=== PATIENT | female | born 2000 ===

== ENCOUNTER → 2022-06-11 09:54 | Outpatient (CLI) | payer OTHER, MEDICAID, SELFPAY ==
[2022-06-11 20:10] LABS: D Dimer 419 ng/mL (<230)
[2022-06-11 20:22] LABS: Add Manual Diff / Slide Review NO; Basophils Absolute Auto 0 /uL (0-100); Basophils Percent Auto 0.5 % (0-2); Eosinophils Absolute Auto 100 /uL (0-450); Eosinophils Percent Auto 2.5 % (2-4); Hemoglobin 13.9 g/dL (12.0-16.0); Lymphocytes Absolute Auto 2000 /uL (1100-4500); Lymphocytes Percent Auto 51.7 % (25-40); Mean Corpuscular HGB Conc 34.7 % (30-36); Mean Corpuscular Hemoglobin 32.1 PG (26-34); Mean Corpuscular Volume 92.5 fL (80-100); Monocytes Absolute Auto 400 /uL (0-900); Monocytes Percent Auto 10.1 % (3-14); Neutrophils Absolute Auto 1300 /uL (1500-7000); Neutrophils Percent Auto 35.2 % (50-75); Platelet Count 301 X10^3/uL (150-400); Red Blood Cell Count 4.32 X10^6/uL (4.0-5.2); Red Cell Distribution Width 12.9 % (11.6-14.8); White Blood Cell Count 3.8 X10^3/uL (4.5-11.0)
[2022-06-11 20:32] LABS: Troponin I < 0.012 ng/mL (0.01-0.034)
== END ==
PROVIDERS: PCP Family Medicine; Visit Provider Family Medicine
DX: D68.51 Activated protein C resistance (principal); R07.89 Other chest pain; Z86.718 Personal history of other venous thrombosis and embolism
CPT/HCPCS: 84484; 85025; 85379

== ENCOUNTER 2022-06-14 14:21 | Emergency (ER) | payer OTHER, MEDICAID, SELFPAY ==
[2022-06-14 14:57] VITALS: BP 130/81; PULSE 80; RESP 18; TEMP 36.9; O2SAT 99; BMI 22.8
--- NOTE | 2022-06-14 15:06 | DI.RAD.S_ITS ---
PROCEDURE: XR CHEST 1V INDICATIONS: chest pain TECHNIQUE: One view of the chest was acquired. COMPARISON: [facility] ([place]), CR, XR CHEST 2V, 06/08/2022, 14:28. FINDINGS: Surgical changes and devices: None. Lungs and pleura: Lungs are clear. No pleural effusions or pneumothorax. Mediastinum: Mediastinal contours appear normal. Heart size is normal. Bones and chest wall: No suspicious bony lesions. Overlying soft tissues appear unremarkable. IMPRESSION: Portable chest within normal limits. Dictated by: José Antonio Ybarra M.D. on 06/14/2022 at 15:22 Approved by: José Antonio Ybarra M.D. on 06/14/2022 at 15:23
--- NOTE | 2022-06-14 15:10 | DI.CT.S_ITS ---
PROCEDURE: CT ANGIO CHEST PE PROTOCOL INDICATIONS: Short of breath, chest pain, dvt TECHNIQUE: After the administration of intravenous contrast, 2 mm thick sections acquired from the pulmonary apices to the posterior costophrenic angles. 3-dimensional maximum intensity projection (MIP) coronal and sagittal reformats were then acquired through the thorax. For radiation dose reduction, the following was used: automated exposure control, adjustment of mA and/or kV according to patient size. COMPARISON: [facility], CR, XR CHEST 1V, 06/14/2022, 15:10. FINDINGS: Image quality: Excellent. Pulmonary arteries: Pulmonary arteries are normal in size, and demonstrate no intraluminal filling defects to suggest central pulmonary embolism. Lungs and pleura: Lungs are clear. No pleural effusions or pneumothorax. Central and peripheral airways are patent. Mediastinum: Heart size is normal, without pericardial effusion. No mediastinal or hilar adenopathy. Thoracic aorta is normal in caliber and enhancement. Esophagus is normal in caliber, without hiatal hernia. Bones and chest wall: No suspicious bony lesions. Ribs and thoracic spine appear intact throughout. Thyroid gland demonstrates no significant abnormality. No axillary or supraclavicular adenopathy. Abdomen: Visualized upper abdominal solid organs appear normal in the early arterial phase of enhancement. IMPRESSION: Negative for pulmonary embolism. Clear lungs. Dictated by: José Antonio Ybarra M.D. on 06/14/2022 at 16:20 Approved by: José Antonio Ybarra M.D. on 06/14/2022 at 16:22
[2022-06-14 15:35] LABS: Alanine Aminotransferase 15 IU/L (<35); Albumin 4.8 g/dL (3.5-5.0); Albumin Globulin Ratio 1.5 (1.0-2.8); Alkaline Phosphatase 38 U/L (38-126); Aspartate Aminotransferase 21 IU/L (14-36); BUN Creatinine Ratio 17.5 (6-22); Bilirubin Total 1.7 mg/dL (0.2-1.3); Blood Urea Nitrogen 14 mg/dL (7-17); Calcium 9.6 mg/dL (8.4-10.2); Carbon Dioxide 26 mmol/L (22-32); Chloride 107 mmol/L (98-107); Creatine Kinase 79 U/L (30-135); Estimated Glomerular Filt Rate > 60 mL/min (>60); Globulin 3.2 g/dL (1.7-4.1); Glucose 87 mg/dL (70-100); HEMOLYSIS < 15 (0-50); Lipase 114 U/L (23-300); Potassium 4.1 mmol/L (3.4-5.1); Sodium 139 mmol/L (137-145)
[2022-06-14 15:47] LABS: NT-proBNP (BNP-Adult 18+) 60 pg/mL (<125); Troponin I < 0.012 ng/mL (0.01-0.034)
[2022-06-14 15:57] LABS: Add Manual Diff / Slide Review NO; Basophils Absolute Auto 100 /uL (0-100); Eosinophils Absolute Auto 0 /uL (0-450); Eosinophils Percent Auto 0.7 % (2-4); Hematocrit 41.1 % (36-46); Hemoglobin 14.3 g/dL (12.0-16.0); Lymphocytes Absolute Auto 1500 /uL (1100-4500); Lymphocytes Percent Auto 24.7 % (25-40); Mean Corpuscular HGB Conc 34.8 % (30-36); Mean Corpuscular Hemoglobin 32.2 PG (26-34); Mean Corpuscular Volume 92.5 fL (80-100); Monocytes Absolute Auto 400 /uL (0-900); Monocytes Percent Auto 5.9 % (3-14); Neutrophils Absolute Auto 4000 /uL (1500-7000); Neutrophils Percent Auto 67.7 % (50-75); Platelet Count 343 X10^3/uL (150-400); Red Blood Cell Count 4.44 X10^6/uL (4.0-5.2); Red Cell Distribution Width 13.3 % (11.6-14.8); White Blood Cell Count 5.9 X10^3/uL (4.5-11.0)
[2022-06-14 16:23] LABS: COVID19 -Nasal RAPID Negative (Negative)
[2022-06-14 18:46] VITALS: BP 129/79; PULSE 70; RESP 16; O2SAT 96
--- NOTE | 2022-06-14 19:03 | ED.SOB ---
HPI - SOB/Dyspnea General Chief Complaint: Shortness of Breath/Dyspnea Stated Complaint: Ref for urgent ct scan Time Seen by Provider: 06/14/22 17:42 Source: patient Mode of arrival: Ambulatory Limitations: no limitations History of Present Illness HPI Narrative: This is a 22-year-old female with history of factor 5 Leiden and chronic DVT in your right lower extremity who comes to the emergency department. Patient presents with complaint of chest pain that has been intermittent for the past several weeks. 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 She states she is had a lot of musculoskeletal issue her joints her shoulders her pectoral muscles and it was not atypical for her to have chest pain. She notes she was at home she had sort of left upper sternal border chest discomfort, she felt short of breath she is had this on off she is not had any syncope or passing out. No fevers or chills, no cold cough or congestion. No productive sputum. No palpitations. She denies nausea or vomiting, no diarrhea constipation, no urinary symptoms. No new swelling in her extremities she states her right calf is sort of chronically swollen patient states that she is had increased anxiety since finishing college and no longer being in his a structured environment. She thought that she would be more excited to be done states she has felt more anxious. She does have IUD in place, a Liletta. She is not on any other estrogen products she was found to have factor 5 Leiden she believes she had a DVT probably a couple years before, she was on oral contraceptives at that time had pretty significant calf pain but thought it was musculoskeletal. It was later found couple years after this episode. Patient is not currently anticoagulated. She did have COVID about 2 months ago she states she had quite a bit of breathing difficulties at that but she had a period where she was pretty much asymptomatic afterwards. She is not had any prior surgeries. No tobacco, alcohol or illicit. She states for family history no known cardiac history, no other pulmonary history, she would an aunt who had a stroke at age 40. She is currently living on [address]. She does have a primary care provider on the [place]. Related Data Home Medications Medication Instructions Recorded Confirmed Iron supplement daily PO 06/08/22 06/08/22 Vitamin C daily PO 06/08/22 diclofenac sodium 1 % topical gel 4 g topical QID 06/12/22 06/12/22 piroxicam 20 mg capsule 20 mg PO DAILY 06/12/22 06/12/22 Allergies Allergy/AdvReac Type Severity Reaction Status Date / Time No Known Drug Allergies Allergy Unverified 06/08/22 14:37 Review of Systems Review of Systems ROS Unobtainable: All systems reviewed & are unremarkable except as noted in HPI and below Patient History Medical History History of migraine Social History Smoking Status: Never smoker Smoking Status: Never smoker alcohol intake frequency: 0-2 drinks per day Substance Use Type: does not use Exam Narrative Exam Narrative: GENERAL: Alert and oriented x three, well-nourished female in mild distress. HEENT: Head normocephalic, atraumatic, EOMI, pupils reactive, face symmetric, moist mucous membranes NECK: Supple, full range of motion CARDIOVASCULAR: Regular rate and rhythm without murmurs, rubs or gallops. No JVD no swelling bilateral extremities appreciated. Patient has some mild tenderness at the sternal border and left clavicle sternal joint but no erythema, swelling or skin changes. RESPIRATORY: Breath sounds equal bilaterally, no wheezes rales or rhonchi. ABDOMEN: Soft, nontender. Normoactive bowel sounds all 4 quadrants. No guarding or rebound, rigidity, no mass : No CVA tenderness EXTREMITIES: Normal range of motion, no clubbing or edema. Neurovascularly intact NEUROLOGICAL: Cranial nerves II through XII grossly intact. Moving all extremities SKIN: Warm, dry, no petechiae, no rashes or lesions. Initial Vital Signs Initial Vital Signs: Vital Signs Temperature 98.5 F 06/14/22 14:57 Pulse Rate 80 06/14/22 14:57 Respiratory Rate 18 06/14/22 14:57 Blood Pressure 130/81 06/14/22 14:57 Pulse Oximetry 99 06/14/22 14:57 Oxygen Delivery Method 06/14/22 14:57 Course Orders Ordered: ED Orders 06/14/22 15:06 XR chest 1V Stat EKG-12 Lead Stat 06/14/22 15:10 CT angio chest PE protocol Stat Complete Blood Count AUTO DIFF Stat Comprehensive Metabolic Panel Stat Lipase Stat Magnesium Stat NT-proBNP (BNP-Adult 18+) Stat Troponin & CK Cardiac Panel Stat 06/14/22 16:01 COVID19 -Nasal RAPID/Pre-Proc Stat Vital Signs Vital signs: Vital Signs - 8 hr 06/14/22 14:57 06/14/22 18:46 Temperature 98.5 F Pulse Rate 80 70 Respiratory Rate 18 16 Blood Pressure 130/81 129/79 Pulse Oximetry 99 96 Oxygen Delivery Method Room Air MDM - SOB/Dyspnea Lab Data Result diagrams: 06/14/22 15:10 06/14/22 15:10 Labs: Lab Results 06/14/22 06/14/22 06/14/22 Range/Units 15:10 15:10 15:10 WBC 5.9 (4.5-11.0) X10^3/uL RBC 4.44 (4.0-5.2) X10^6/uL Hgb 14.3 (12.0-16.0) g/dL Hct 41.1 (36-46) % MCV 92.5 (80-100) fL MCH 32.2 (26-34) PG MCHC 34.8 (30-36) % RDW 13.3 (11.6-14.8) % Plt Count 343 (150-400) X10^3/uL Neut % (Auto) 67.7 (50-75) % Lymph % (Auto) 24.7 L (25-40) % [place] % (Auto) 5.9 (3-14) % Eos % (Auto) 0.7 L (2-4) % Baso % (Auto) 1.0 (0-2) % Neut # (Auto) 4000 (4364-7680) /uL Lymph # (Auto) 1500 (5011-6955) /uL [place] # (Auto) 400 (0-900) /uL Eos # (Auto) 0 (0-450) /uL Baso # (Auto) 100 (0-100) /uL Sodium 139 Cancelled (137-145) mmol/L Potassium 4.1 Cancelled (3.4-5.1) mmol/L Chloride 107 Cancelled (98-107) mmol/L Carbon Dioxide 26 Cancelled (22-32) mmol/L BUN 14 Cancelled (7-17) mg/dL Creatinine 0.80 Cancelled (0.52-1.04) mg/dL Estimated GFR > 60 Cancelled (>60) mL/min BUN/Creatinine Ratio 17.5 Cancelled (6-22) Glucose 87 Cancelled (70-100) mg/dL Calcium 9.6 Cancelled (8.4-10.2) mg/dL Magnesium 2.0 (1.6-2.3) mg/dL Total Bilirubin 1.7 H Cancelled (0.2-1.3) mg/dL AST 21 Cancelled (14-36) IU/L ALT 15 Cancelled (<35) IU/L Alkaline Phosphatase 38 Cancelled (38-126) U/L Total Creatine Kinase 79 (30-135) U/L CK-MB (CK-2) TNP CK-MB (CK-2) Rel Index TNP Troponin I < 0.012 (0.01-0.034) ng/mL NT-Pro-B Natriuret Pep 60 Cancelled (<125) pg/mL Total Protein 8.0 Cancelled (6.3-8.2) g/dL Albumin 4.8 Cancelled (3.5-5.0) g/dL Globulin 3.2 Cancelled (1.7-4.1) g/dL Albumin/Globulin Ratio 1.5 Cancelled (1.0-2.8) Lipase 114 (23-300) U/L SARS-CoV-2 (PCR) (Negative) 06/14/22 Range/Units 16:01 WBC (4.5-11.0) X10^3/uL RBC (4.0-5.2) X10^6/uL Hgb (12.0-16.0) g/dL Hct (36-46) % MCV (80-100) fL MCH (26-34) PG MCHC (30-36) % RDW (11.6-14.8) % Plt Count (150-400) X10^3/uL Neut % (Auto) (50-75) % Lymph % (Auto) (25-40) % [place] % (Auto) (3-14) % Eos % (Auto) (2-4) % Baso % (Auto) (0-2) % Neut # (Auto) (1388-5904) /uL Lymph # (Auto) (3583-0828) /uL [place] # (Auto) (0-900) /uL Eos # (Auto) (0-450) /uL Baso # (Auto) (0-100) /uL Sodium (137-145) mmol/L Potassium (3.4-5.1) mmol/L Chloride (98-107) mmol/L Carbon Dioxide (22-32) mmol/L BUN (7-17) mg/dL Creatinine (0.52-1.04) mg/dL Estimated GFR (>60) mL/min BUN/Creatinine Ratio (6-22) Glucose (70-100) mg/dL Calcium (8.4-10.2) mg/dL Magnesium (1.6-2.3) mg/dL Total Bilirubin (0.2-1.3) mg/dL AST (14-36) IU/L ALT (<35) IU/L Alkaline Phosphatase (38-126) U/L Total Creatine Kinase (30-135) U/L CK-MB (CK-2) CK-MB (CK-2) Rel Index Troponin I (0.01-0.034) ng/mL NT-Pro-B Natriuret Pep (<125) pg/mL Total Protein (6.3-8.2) g/dL Albumin (3.5-5.0) g/dL Globulin (1.7-4.1) g/dL Albumin/Globulin Ratio (1.0-2.8) Lipase (23-300) U/L SARS-CoV-2 (PCR) Negative (Negative) Point of Care Testing Test Results Negative Urine Dip Bedside Urine Glucose Negative Bedside Urine Bilirubin - Negative Bedside Urine Ketone - Negative Urine Specific [place] 1.010 Bedside Urine Occult Blood - Negative Bedside Urine pH 6.0 Bedside Urine Protein - Negative Bedside Urine Urobilinogen - Negative Bedside Urine Nitrite - Negative Bedside Urine Leukocytes - Negative Esterase Imaging Data CT scan - chest: Radiologist's Impression: [address] [id number] Scan ReportSigned Patient: Klarissa Wallace TMR#: [id number]: 04/11/1965Acct:[id number]/Sex: 57 / FDate of Service: 06/14/22Loc: EDAccession Number: [id number]? ? Procedure: CT angio head Ordering Provider: Ibeth Benson D.O. PROCEDURE:? CT ANGIO HEAD ? INDICATIONS:? Possible stroke ? TECHNIQUE:? Precontrast 4.5 mm thick angled axial sections acquired from the foramen magnum to the vertex.? ?After the administration of intravenous contrast, 1 mm thick sections acquired through the [place] of [place].? Postcontrast 4.5 mm thick sections then re-acquired from the foramen magnum to the vertex.? 10 mm thick dmeoymx-xwkujwacx-nflkdgxnne (MIP) reformats were acquired of the central intracranial vasculature.? For radiation dose reduction, the following was used:? automated exposure control, adjustment of mA and/or kV according to patient size.? ? ? COMPARISON:? [facility], CT, CT STROKE, 06/14/2022, 14:41. ? FINDINGS:? Image quality:? Excellent.? ? Anterior circulation:? Intracranial internal carotid arteries are normal in size and flow.? The flow within the paired anterior cerebral arteries is normal and symmetric.? The flow within the middle cerebral arteries is normal and symmetric.? The anterior communicating artery is seen.? No aneurysms are seen.? ? Posterior circulation:? There is a slight left vertebral artery dominance.? Visualized portions of the vertebral arteries demonstrate normal caliber, and join to form a normal appearing basilar artery.? Flow within the posterior cerebral arteries is normal and symmetric.? No aneurysms are seen.? No vascular abnormality is identified within the area of concern in the left posterior occipital lobe. ? The ventricular system and cortical sulci demonstrate atrophy, consistent for the patient's stated age. There are areas of hypodensity within the periventricular and subcortical white matter.? There is no acute intra-or extra axial fluid collection. No acute hemorrhage, mass lesion or midline shift. Brainstem is unremarkable. Globes are symmetrical. Sinuses are aerated. Osseous structures are intact. ? IMPRESSION:? ? No areas of hemodynamically significant stenosis, vascular occlusion or aneurysmal dilation within the anterior or posterior circulation. ? Dictated by: Delphine Hadley M.D. on 06/14/2022 at 16:33? ?? Approved by: Delphine Hadley M.D. on 06/14/2022 at 16:35? ECG Data Attestation: I personally reviewed and interpreted this ECG as follows: Interpretation: Sinus rhythm rate of 68 AR 182, QRS 102, QTC of 448. No acute ST changes appreciated MDM Narrative Medical decision making narrative: 22-year-old female with known factor 5 Leiden and prior chronic DVT who is not currently anticoagulated and does have a progesterone IUD. 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 She has had some increasing anxiety after finishing college and stopping participating in athletics in the last couple weeks. Patient does have risk factors for PE she had an outpatient D-dimer which was elevated. Labs including CBC, CMP troponin, COVID are negative. Bilirubin is slightly elevated patient is nontender on abdominal exam and her pain is left upper chest none in the lower right. Chest x-ray is negative, CTA is negative for structural, pulmonary emboli or other changes. She did have COVID about 2 months ago was quite symptomatic but states she would a period of improvement in between then and most recent episodes of chest pain and shortness of breath. I suspect there may be some musculoskeletal component still. Patient is to follow up with primary care we discussed if having persistent symptoms or palpitations Holter monitor or ZIO patch may be appropriate, as she is a collegiate athlete follow-up for echo would also probably be appropriate to evaluate for hypertrophic changes although her EKG and imaging do not suggest this. She has not had any syncope she had an aunt who had a stroke at age 40 but this seems consistent with a factor 5 DVT history. Return precautions discussed, all questions answered patient feels much more comfortable returning home at this time. Discharge Plan Departure Patient Disposition: Home Clinical Impression: Atypical chest pain Instructions: DI for Atypical Chest Pain Activity Restrictions/Additional Instructions: Hope you continue to feel improved over the next week. Please follow-up with your primary care physician. Your lab work and imaging today did not show major abnormalities. If you have persistent or new palpitations or rhythm changes talk with her physician about getting a Holter monitor or ZIO patch. If you continued to have chest pain or shortness of breath and echo may be helpful, your physician can help set this up Please return for new or worsening chest pain, shortness of breath, passing out, diaphoresis or sweatiness, persistent nausea vomiting, new swelling in her extremities or other new or concerning symptoms. Prescriptions: No Action Iron supplement daily PO Vitamin C daily PO piroxicam 20 mg capsule 20 mg PO DAILY Rx Instructions: Take 1 capsule (20 mg) by mouth daily. Take with food. 12/11/2021 diclofenac sodium 1 % gel 4 g topical QID Rx Instructions: Apply 4 g topically 4 times a day as needed (pain). Apply to affected area of the hand. 12/27/2021 apply to single knee, ankle, foot; for foot includes sole/toes/top of foot Referrals: Bossman Feldman MD [Primary Care Provider] - Visit Report Forms: Patient Portal/API
== END 2022-06-14 19:31 | disposition home or self-care (01) ==
PROVIDERS: Emergency Provider Emergency Medicine; PCP Family Medicine
DX: R07.89 Other chest pain (principal); Z20.822 Contact with and (suspected) exposure to COVID-19
CPT/HCPCS: 71045; 71275; 80053; 81003; 81025; 82550; 83690; 83735; 83880; 84484; 85025; 87635; 93005; 99282; 99284; C9803; Q9967